=== PATIENT | female | born 1990 | race Caucasian/White ===

== ENCOUNTER 2018-03-28 13:47 | Emergency (ER) | payer BC, MEDICAID ==
[2018-03-28] MEDS ORDERED: LORazepam 2 MG/ML SDV IVPUSH ONE ×2 (14:00→14:54)
[2018-03-28] MEDS ORDERED: Sodium Chloride 0.9% 10 ML Syringe FLUSH PRN (14:00)
--- NOTE | 2018-03-28 14:03 | EDM.PDOC ---
ED HPI GENERAL MEDICAL PROBLEM - General Chief Complaint: Syncope Stated Complaint: SYNCOPE Time Seen by Provider: 03/28/18 14:02 Source of Information: Reports: Patient History Limitations: Reports: Other (anxious) - History of Present Illness INITIAL COMMENTS - FREE TEXT/NARRATIVE: 27-year-old female presents for evaluation and treatment following a near syncopal episode. Reports she was lightheaded and dizzy but did not actually pass out. She is reporting chest pain and shortness of breath related to anxiety. She is incredibly anxious upon arrival to the ED and cannot answer questions completely. She is tachypneic and crying. Plan will be to get her some IV Ativan and check her sugar as she is on metformin. Will then reassess and interview her once she has calmed down. - Related Data Allergies Allergy/AdvReac Type Severity Reaction Status Date / Time morphine AdvReac Mild Burning Verified 03/28/18 13:56 Home Meds: Home Meds DULoxetine [Cymbalta] 60 mg PO DAILY 03/28/18 [History] LORazepam [Ativan] 1 mg PO Q6HR PRN #8 tablet 03/28/18 [Rx] RX: Doxycycline Hyclate 50 mg PO DAILY 03/28/18 [History] RX: Omeprazole 40 mg PO DAILY 03/28/18 [History] RX: Phentermine HCl 37.5 mg PO DAILY 03/28/18 [History] Spironolactone [Aldactone] 100 mg PO DAILY 03/28/18 [History] buPROPion HCl [Wellbutrin Xl] 150 mg PO DAILY 03/28/18 [History] buPROPion [buPROPion XL] 300 mg PO BEDTIME 03/28/18 [History] metFORMIN [Glucophage XR] 500 mg PO DAILY 03/28/18 [History] Past Medical History Psychiatric History: Reports: Anxiety, Depression Social & Family History - Tobacco Use Smoking Status *Q: Never Smoker - Caffeine Use Caffeine Use: Reports: None - Recreational Drug Use Recreational Drug Use: No ED ROS GENERAL - Review of Systems Review Of Systems: See Below Respiratory: Reports: Shortness of Breath (due to anxiety) Cardiovascular: Reports: Chest Pain (due to anxiety ), Lightheadedness GI/Abdominal: Denies: Abdominal Pain, Nausea, Vomiting Neurological: Reports: Dizziness. Denies: Syncope Psychiatric: Reports: Anxiety - Physical Exam Exam: See Below Exam Limited By: No Limitations General Appearance: Alert, WD/WN, Anxious, Obese Respiratory/Chest: No Respiratory Distress, Lungs Clear Cardiovascular: Normal Peripheral Pulses, Regular Rate, Rhythm GI/Abdominal: Soft, Non-Tender Neuro Exam (Abbreviated): Alert, Oriented, Normal Cognition Extremities: Normal Inspection Psychiatric: Anxious, Tearful, Other (suicidal thoughts, no suicidal plan or homicidal thoughts or plan) Skin Exam: Warm, Dry, Normal Color Course - Vital Signs Last Recorded V/S: Last Vital Signs Temp 98 F 03/28/18 13:51 Pulse Resp 28 H 03/28/18 13:51 BP 136/105 H 03/28/18 13:51 Pulse Ox 100 03/28/18 13:51 Orthostatic Blood Pressure [ 121/98 Standing] Orthostatic Blood Pressure [ 128/95 Sitting] Orthostatic Blood Pressure [ 115/86 Supine] - Orders/Labs/Meds Orders: Active Orders 24 hr Category Date Time Status Blood Glucose Check, Bedside [RC] ONETIME Care 03/28/18 14:00 Active Cardiac Monitoring [RC] . DIRECTED Care 03/28/18 14:00 Active Orthostatic Vital Signs [RC] ASDIRECTED Care 03/28/18 14:54 Active Peripheral IV Care [RC] . DIRECTED Care 03/28/18 14:00 Active DRUG SCREEN, URINE [URCHEM] Stat Lab 03/28/18 15:35 Ordered UA W/MICROSCOPIC [URIN] Stat Lab 03/28/18 15:35 Ordered Peripheral IV Insertion Adult [OM.PC] Routine Oth 03/28/18 14:00 Ordered Labs: Laboratory Tests 03/28/18 03/28/18 03/28/18 Range/Units 14:00 14:00 14:00 WBC 10.99 H (3.98-10.04) K/mm3 RBC 4.65 (3.98-5.22) M/mm3 Hgb 14.3 (11.2-15.7) gm/L Hct 43.2 (34.1-44.9) % MCV 92.9 (79.4-94.8) fl MCH 30.8 (25.6-32.2) pg MCHC 33.1 (32.2-35.5) g/dl RDW Std Deviation 42.1 (36.4-46.3) fL Plt Count 409 H (182-369) K/mm3 MPV 9.7 (9.4-12.3) fl Neut % (Auto) 69.9 (34.0-71.1) % Lymph % (Auto) 24.3 (19.3-51.7) % Haines % (Auto) 4.5 L (4.7-12.5) % Eos % (Auto) 0.6 L (0.7-5.8) Baso % (Auto) 0.5 (0.1-1.2) % Neut # (Auto) 7.69 H (1.56-6.13) K/mm3 Lymph # (Auto) 2.67 (1.18-3.74) K/mm3 Haines # (Auto) 0.49 H (0.24-0.36) K/mm3 Eos # (Auto) 0.07 (0.04-0.36) K/mm3 Baso # (Auto) 0.05 (0.01-0.08) K/mm3 Sodium 140 (136-145) mEq/L Potassium 4.2 (3.5-5.1) mEq/L Chloride 106 (98-107) mEq/L Carbon Dioxide 22 (21-32) mEq/L Anion Gap 16.2 H (5-15) BUN 7 (7-18) mg/dL Creatinine 1.1 H (0.55-1.02) mg/dL Est Cr Clr Drug Dosing 76.81 mL/min Estimated GFR (MDRD) 59 (>60) mL/min BUN/Creatinine Ratio 6.4 L (14-18) Glucose 109 H (74-106) mg/dL POC Glucose (70-105) mg/dL Calcium 9.3 (8.5-10.1) mg/dL Total Bilirubin 0.2 (0.2-1.0) mg/dL AST 22 (15-37) U/L ALT 33 (14-59) U/L Alkaline Phosphatase 79 (46-116) U/L Total Protein 7.7 (6.4-8.2) g/dl Albumin 3.7 (3.4-5.0) g/dl Globulin 4.0 gm/dL Albumin/Globulin Ratio 0.9 L (1-2) Urine Color (Yellow) Urine Appearance (Clear) Urine pH (5.0-8.0) Ur Specific [place] (1.005-1.030) Urine Protein (Negative) Urine Glucose (UA) (Negative) Urine Ketones (Negative) Urine Occult Blood (Negative) Urine Nitrite (Negative) Urine Bilirubin (Negative) Urine Urobilinogen (0.2-1.0) Ur Leukocyte Esterase (Negative) Urine RBC (0-5) /hpf Urine WBC (0-5) /hpf Ur Epithelial Cells (0-5) /hpf Urine Bacteria (FEW) /hpf Urine Mucus (FEW) /hpf Urine Opiates Screen (NEGATIVE) Ur Buprenorphine Scrn (NEGATIVE) Ur Oxycodone Screen (NEGATIVE) Urine Methadone Screen (NEGATIVE) Ur Propoxyphene Screen (NEGATIVE) Ur Barbiturates Screen (NEGATIVE) Ur Tricyclics Screen (NEGATIVE) Ur Phencyclidine Scrn (NEGATIVE) Ur Amphetamine Screen (NEGATIVE) U Methamphetamines Scrn (NEGATIVE) U Benzodiazepines Scrn (NEGATIVE) U Cocaine Metab Screen (NEGATIVE) U Marijuana (THC) Screen (NEGATIVE) Ethyl Alcohol 0.00 (0.00) gm% 03/28/18 03/28/18 03/28/18 Range/Units 14:08 15:35 15:35 WBC (3.98-10.04) K/mm3 RBC (3.98-5.22) M/mm3 Hgb (11.2-15.7) gm/L Hct (34.1-44.9) % MCV (79.4-94.8) fl MCH (25.6-32.2) pg MCHC (32.2-35.5) g/dl RDW Std Deviation (36.4-46.3) fL Plt Count (182-369) K/mm3 MPV (9.4-12.3) fl Neut % (Auto) (34.0-71.1) % Lymph % (Auto) (19.3-51.7) % Haines % (Auto) (4.7-12.5) % Eos % (Auto) (0.7-5.8) Baso % (Auto) (0.1-1.2) % Neut # (Auto) (1.56-6.13) K/mm3 Lymph # (Auto) (1.18-3.74) K/mm3 Haines # (Auto) (0.24-0.36) K/mm3 Eos # (Auto) (0.04-0.36) K/mm3 Baso # (Auto) (0.01-0.08) K/mm3 Sodium (136-145) mEq/L Potassium (3.5-5.1) mEq/L Chloride (98-107) mEq/L Carbon Dioxide (21-32) mEq/L Anion Gap (5-15) BUN (7-18) mg/dL Creatinine (0.55-1.02) mg/dL Est Cr Clr Drug Dosing mL/min Estimated GFR (MDRD) (>60) mL/min BUN/Creatinine Ratio (14-18) Glucose (74-106) mg/dL POC Glucose 93 (70-105) mg/dL Calcium (8.5-10.1) mg/dL Total Bilirubin (0.2-1.0) mg/dL AST (15-37) U/L ALT (14-59) U/L Alkaline Phosphatase (46-116) U/L Total Protein (6.4-8.2) g/dl Albumin (3.4-5.0) g/dl Globulin gm/dL Albumin/Globulin Ratio (1-2) Urine Color Yellow (Yellow) Urine Appearance Clear (Clear) Urine pH 7.0 (5.0-8.0) Ur Specific [place] 1.015 (1.005-1.030) Urine Protein Negative (Negative) Urine Glucose (UA) Negative (Negative) Urine Ketones Negative (Negative) Urine Occult Blood Negative (Negative) Urine Nitrite Negative (Negative) Urine Bilirubin Negative (Negative) Urine Urobilinogen 0.2 (0.2-1.0) Ur Leukocyte Esterase Negative (Negative) Urine RBC Not seen (0-5) /hpf Urine WBC 0-5 (0-5) /hpf Ur Epithelial Cells 0-5 (0-5) /hpf Urine Bacteria Not seen (FEW) /hpf Urine Mucus Not seen (FEW) /hpf Urine Opiates Screen Negative (NEGATIVE) Ur Buprenorphine Scrn Negative (NEGATIVE) Ur Oxycodone Screen Negative (NEGATIVE) Urine Methadone Screen Negative (NEGATIVE) Ur Propoxyphene Screen Negative (NEGATIVE) Ur Barbiturates Screen Negative (NEGATIVE) Ur Tricyclics Screen Negative (NEGATIVE) Ur Phencyclidine Scrn Negative (NEGATIVE) Ur Amphetamine Screen Presumptive positive H (NEGATIVE) U Methamphetamines Scrn Negative (NEGATIVE) U Benzodiazepines Scrn Negative (NEGATIVE) U Cocaine Metab Screen Negative (NEGATIVE) U Marijuana (THC) Screen Negative (NEGATIVE) Ethyl Alcohol (0.00) gm% Meds: Medications Discontinued Medications Generic Name Dose Route Start Last Admin Trade Name Frenader PRN Reason Stop Dose Admin Sodium Chloride 1,000 mls @ 999 mls/hr 03/28/18 15:14 03/28/18 15:37 Normal Saline IV 03/28/18 16:14 999 mls/hr ONETIME ONE Administration Lorazepam 1 mg 03/28/18 14:00 03/28/18 14:04 Ativan IVPUSH 03/28/18 14:01 1 mg ONETIME ONE Administration Lorazepam 0.5 mg 03/28/18 14:54 03/28/18 15:08 Ativan IVPUSH 03/28/18 14:55 0.5 mg ONETIME ONE Administration Sodium Chloride 10 ml 03/28/18 14:00 03/28/18 14:04 Saline Flush FLUSH 10 ml ASDIRECTED PRN Administration Keep Vein Open - Re-Assessments/Exams Free Text/Narrative Re-Assessment/Exam: 03/28/18 15:16 Was able to go in an interview the patient now that she has calmed down. She still tearful and anxious I'll order her an additional 0.5 mg IV Ativan. Patient talks about how she had missed her Cymbalta for the last 2 days. She was feeling "brain zaps" and tired earlier. patient states the side effect of when she withdraws from Cymbalta. She realizes that she has not taken her Cymbalta, by accident, last 2 days. She became quite anxious about this and took it around noon. She states that she felt lightheaded and dizzy. She reports that she did not pass out. She felt chest pain and shortness of breath earlier which this is now resolved. She states that she's had panic attacks in the past and this felt very similar other than feeling so ill. Will check orthostatics. Awaiting labs. This is likely a panic attack. Will check basic labs. 03/28/18 17:09 Patient is feeling greatly in improved at this time. She feels fatigued. She has called and made appointment with a psychiatrist in [place], Dr. Bean, She denies any suicidal plan but states she has daily thoughts of suicide. This sounds like this is her baseline. She has seen multiple psychiatrists and psychologists in the past but has had difficulty establishing one she feels comfortable with. I will provide her with resources should this not work out with Dr. Bean. Discharge instructions as documented. Departure - Departure Time of Disposition: 17:10 Disposition: Home, Self-Care 01 Condition: Fair Clinical Impression: Panic attack - Discharge Information *PRESCRIPTION DRUG MONITORING PROGRAM REVIEWED*: No *COPY OF PRESCRIPTION DRUG MONITORING REPORT IN PATIENT MOLLY: No Prescriptions: LORazepam [Ativan] 1 mg PO Q6HR PRN #8 tablet PRN Reason: Anxiety Instructions: Panic Attack, [id number] Referrals: Sharon Obrien NP [Primary Care Provider] - Forms: ED Department Discharge Additional Instructions: Follow up with Dr. Bean as planned. Information has been provided for you should this not without with Dr Bean. Ativan 1 tab every 6 hours as needed for anxiety. This medication may make you drowsy. Do not drive or operate machinery within 10 hours of taking Ativan. Please return to the ER if your symptoms change or worsen. - My Orders Last 24 Hours: My Active Orders 03/28/18 14:00 Blood Glucose Check, Bedside [RC] ONETIME Cardiac Monitoring [RC] . DIRECTED Peripheral IV Care [RC] . DIRECTED Peripheral IV Insertion Adult [OM.PC] Routine 03/28/18 14:54 Orthostatic Vital Signs [RC] ASDIRECTED 03/28/18 15:35 DRUG SCREEN, URINE [URCHEM] Stat UA W/MICROSCOPIC [URIN] Stat - Assessment/Plan Last 24 Hours: My Active Orders 03/28/18 14:00 Blood Glucose Check, Bedside [RC] ONETIME Cardiac Monitoring [RC] . DIRECTED Peripheral IV Care [RC] . DIRECTED Peripheral IV Insertion Adult [OM.PC] Routine 03/28/18 14:54 Orthostatic Vital Signs [RC] ASDIRECTED 03/28/18 15:35 DRUG SCREEN, URINE [URCHEM] Stat UA W/MICROSCOPIC [URIN] Stat
[2018-03-28] MEDS ORDERED: Sodium Chloride 0.9% 1,000 ML IV ONE (15:14)
== END 2018-03-28 17:25 | disposition home or self-care (01) ==
LOC: JD.ED 13:47
DX: F41.0 Panic disorder [episodic paroxysmal anxiety] (principal); F32.9 Major depressive disorder, single episode, unspecified; Z79.899 Other long term (current) drug therapy; Z88.5 Allergy status to narcotic agent
CPT/HCPCS: 36415; 80053; 80306; 81001; 82962; 85025; 96361; 96374; 96376; 99284; G0480; J2060; J7040; J7050

== ENCOUNTER 2018-10-17 11:45 | Emergency (ER) | payer OTHER ==
--- NOTE | 2018-10-17 12:55 | EDM.PDOC ---
ED HPI GENERAL MEDICAL PROBLEM - General Chief Complaint: Syncope Stated Complaint: PASTED OUT Time Seen by Provider: 10/17/18 12:20 Source of Information: Reports: Patient History Limitations: Reports: No Limitations - History of Present Illness INITIAL COMMENTS - FREE TEXT/NARRATIVE: Patient is a 27-year-old female presents ED with 2 episodes of syncopal episodes over the past week. States this morning at approximately 8:00 with awakening she remembers sitting up in bed and then awoke 1.5 hours later laying on the floor. She denies any head pain, headache, vision changes, weakness discrepancies to the upper and lower extremities, neurological changes, difficultly in walking, chest pain, shortness of breath, fever, midline cervical neck pain, midline back pain, dysuria, diarrhea, bloody stool, hematuria, and/or any additional complaints. She states this is a chronic issue for her. She is chronically dizzy with body position changes. She does push the fluids. She has a long history of anxiety and depression and states with any type of medication changes for these conditions she experiences worsening dizziness. Recently was on Cymbalta 90 mg every day. She had been in contact with her primary care provider with the first syncopal episode and was instructed to decrease to 60 mg every day. Symptoms have somewhat improved but still persists. She describes the dizziness as if she is in a boat. There is no sensation of the room spinning. No worsening with turning head from left to right. She denies any chest pain or palpitations with onset. She denies being . There has been no alcohol use. She does not smoke. She does not use drugs. Her last menstrual cycle was 04 October. Her PCP is [facility]. Patient does carry a history of gastroparesis and states she does have some slight tenderness to her abdomen described as mild in nature. Unchanged and does not require any further evaluation. This started approximately 8-9 years ago after gallbladder was removed. - Related Data Allergies Allergy/AdvReac Type Severity Reaction Status Date / Time morphine AdvReac Mild Burning Verified 10/17/18 11:59 Home Meds: Home Meds DULoxetine [Cymbalta] 60 mg PO DAILY 03/28/18 [History] buPROPion HCl [Wellbutrin Xl] 150 mg PO DAILY 03/28/18 [History] buPROPion [buPROPion XL] 300 mg PO BEDTIME 03/28/18 [History] Albuterol Sulfate [Proair Hfa] 2 puff INH Q4H PRN 07/06/18 [History] Ascorbate Calcium [Vitamin C] 500 mg PO DAILY 07/06/18 [History] Calcium Carbonate [Tums Extra Strength] 1 - 2 tab PO BEDTIME PRN 07/06/18 [ History] Ondansetron HCl [Ondansetron] 4 mg PO Q4H PRN 07/06/18 [History] hydrOXYzine pamoate [Vistaril] 25 mg PO QID PRN 07/06/18 [History] Pantoprazole [ProTONIX] 40 mg PO DAILY 10/17/18 [History] Past Medical History HEENT History: Reports: Impaired Vision Cardiovascular History: Reports: Syncope, Other (See Below) Other Cardiovascular History: atypical chest pain Respiratory History: Reports: Asthma Gastrointestinal History: Reports: Other (See Below) Other Gastrointestinal History: gastropareis, esophagitis, gastritis, duodenitis Genitourinary History: Reports: None PAN WASHER History: Reports: Other (See Below) Other PAN WASHER History: breast lumpectomy Musculoskeletal History: Reports: None Neurological History: Reports: None Psychiatric History: Reports: Anxiety, Depression Endocrine/Metabolic History: Reports: Obesity/BMI 30+ Hematologic History: Reports: None Immunologic History: Reports: None Oncologic (Cancer) History: Reports: None Dermatologic History: Reports: Other (See Below) Other Dermatologic History: hirtuism - Past Surgical History Head Surgeries/Procedures: Reports: None HEENT Surgical History: Reports: Oral Surgery Cardiovascular Surgical History: Reports: None Respiratory Surgical History: Reports: None GI Surgical History: Reports: Cholecystectomy, Colonoscopy, EGD Female Surgical History: Reports: None Endocrine Surgical History: Reports: None Neurological Surgical History: Reports: None Musculoskeletal Surgical History: Reports: None Oncologic Surgical History: Reports: None Dermatological Surgical History: Reports: None Social & Family History - Tobacco Use Smoking Status *Q: Never Smoker - Caffeine Use Caffeine Use: Reports: Coffee, Energy Drinks - Recreational Drug Use Recreational Drug Use: No ED ROS GENERAL - Review of Systems Review Of Systems: See Below Constitutional: Denies: Fever, Chills, Malaise, Weakness, Fatigue, Decreased Appetite HEENT: Reports: No Symptoms Respiratory: Reports: No Symptoms Cardiovascular: Reports: Syncope. Denies: Chest Pain, Dyspnea on Exertion, Lightheadedness, Palpitations GI/Abdominal: Denies: Abdominal Pain, Black Stool, Bloody Stool, Constipation, Diarrhea, Decreased Appetite, Distension, Flatus, Hematemesis, Melena, Nausea, Vomiting : Reports: No Symptoms Musculoskeletal: Reports: No Symptoms Skin: Reports: No Symptoms Neurological: Reports: Dizziness (chronic), Syncope (x 1 today). Denies: Confusion, Headache, Numbness, Pre-Existing Deficit, Seizure, Tingling, Trouble Speaking, Difficulty Walking, Weakness, Change in Speech, Gait Disturbance Psychiatric: Reports: No Symptoms - Physical Exam Exam: See Below Exam Limited By: Other General Appearance: Alert, WD/WN, No Apparent Distress Eye Exam: Bilateral Eye: EOMI, Normal Inspection, Nystagmus (none stated), PERRL , Vision Changes (none noted) Ears: Hearing Grossly Normal Nose: Normal Inspection Throat/Mouth: Normal Voice, No Airway Compromise Head Exam: Atraumatic, Normocephalic Neck: Normal Inspection, Supple, Non-Tender, Full Range of Motion Respiratory/Chest: No Respiratory Distress, Lungs Clear, Normal Breath Sounds, No Accessory Muscle Use, Chest Non-Tender Cardiovascular: Normal Peripheral Pulses, Regular Rate, Rhythm, No Murmur GI/Abdominal: Normal Bowel Sounds, Soft, Non-Tender, No Organomegaly, No Distention Neuro Exam (Abbreviated): Alert, Oriented, CN II-XII Intact, Normal Cognition, No Motor/Sensory Deficits Course - Vital Signs Last Recorded V/S: Last Vital Signs Temp 98.1 F 10/17/18 16:05 Pulse 80 10/17/18 16:05 Resp 20 10/17/18 16:05 BP 138/94 H 10/17/18 16:05 Pulse Ox 99 10/17/18 16:05 - Orders/Labs/Meds Orders: Active Orders 24 hr Category Date Time Status EKG 12 Lead [EKG Documentation Completion] [RC] STAT Care 10/17/18 14:19 Active Holter Monitor 48 Hours [RC] .PRN Care 10/17/18 14:20 Active UA W/MICROSCOPIC [URIN] Stat Lab 10/17/18 15:50 Ordered Labs: Laboratory Tests 10/17/18 10/17/18 10/17/18 Range/Units 13:15 13:15 15:50 WBC 8.28 (3.98-10.04) K/mm3 RBC 4.76 (3.98-5.22) M/mm3 Hgb 14.2 (11.2-15.7) gm/L Hct 43.3 (34.1-44.9) % MCV 91.0 (79.4-94.8) fl MCH 29.8 (25.6-32.2) pg MCHC 32.8 (32.2-35.5) g/dl RDW Std Deviation 42.1 (36.4-46.3) fL Plt Count 356 (182-369) K/mm3 MPV 9.0 L (9.4-12.3) fl Neutrophils % (Manual) 79 H (40-60) % Band Neutrophils % 0 (0-10) % Lymphocytes % (Manual) 18 L (20-40) % Atypical Lymphs % 0 % Monocytes % (Manual) 2 (2-10) % Eosinophils % (Manual) 1 (0.7-5.8) % Basophils % (Manual) 0 L (0.1-1.2) Platelet Estimate Adequate Plt Morphology Comment Normal RBC Morph Comment Normal Sodium 139 (136-145) mEq/L Potassium 3.9 (3.5-5.1) mEq/L Chloride 104 (98-107) mEq/L Carbon Dioxide 28 (21-32) mEq/L Anion Gap 10.9 (5-15) BUN 13 (7-18) mg/dL Creatinine 0.9 (0.55-1.02) mg/dL Est Cr Clr Drug Dosing 93.88 mL/min Estimated GFR (MDRD) > 60 (>60) mL/min BUN/Creatinine Ratio 14.4 (14-18) Glucose 83 (74-106) mg/dL Calcium 9.3 (8.5-10.1) mg/dL Total Bilirubin 0.6 (0.2-1.0) mg/dL AST 20 (15-37) U/L ALT 34 (14-59) U/L Alkaline Phosphatase 78 (46-116) U/L C-Reactive Protein 1.0 (<1.0) mg/dL Total Protein 7.6 (6.4-8.2) g/dl Albumin 3.4 (3.4-5.0) g/dl Globulin 4.2 gm/dL Albumin/Globulin Ratio 0.8 L (1-2) Lipase 153 (73-393) U/L Urine HCG, Qual Negative (NEGATIVE) - Re-Assessments/Exams Free Text/Narrative Re-Assessment/Exam: Orthostatic vital signs were obtained. Laying blood pressure 120/86, heart rate 70, SPO2 100%, respiratory rate 14. Sitting blood pressure 123/91, heart rate 91. Standing blood pressure 123/102 and heart rate 91. No IV will be established. Exam was essentially benign. With standing patient was not unsteady at all. I have elected to obtain basic labs including CBC, chem 14, UA, and hCG. EKG will be obtained as well. EKG indicated a sinus rhythm at a rate of 77 with AR interval 151, QTC prolonged 46. No acute ST changes noted. Holter monitor has been ordered. Patient's dizziness worsened with body position changes. She's had 2 syncopal episodes with body position changes. States this has been a chronic issue since she was a teenager. No clear diagnosis. Symptoms worsen with antidepressant and antianxiety medications changes. Recently was on a high dose of Cymbalta 90 mg every day. She had spoken with her primary care provider and this was decreased to 60 mg every day. Symptoms have improved. I suspect this all related to the medications she is currently on. I discussed this with the patient. She is unable to provide a urine sample. She has a appointment scheduled with PCP in the next week. I have instructed the patient to follow-up with a psychologist with her long history of anxiety and depression for further management. Instructed her to also speak with a psychiatrist which I believe would be of great benefit to her. She will follow up with PCP for results of the Holter monitor. I have also asked the patient to take her time with body position changes if she becomes dizzy. If so to return back to the previous body position to allow symptoms to resolve. She had no further questions or concerns and agreed with plan. Departure - Departure Time of Disposition: 15:31 Disposition: Home, Self-Care 01 Condition: Good Clinical Impression: Postural hypotension, Dizziness Syncopal episodes Qualifiers: Syncope type: unspecified Qualified Code(s): R55 - Syncope and collapse - Discharge Information Instructions: Dizziness, [id number], Cardiac Event Monitoring, Hypotension, Syncope, [id number] Referrals: Sharon Lau NP [Primary Care Provider] - Forms: ED Department Discharge Additional Instructions: Please follow up with primary care provider as scheduled within the next week for results of Holter monitor. Event monitor may be required if no episodes occurred. I do believe modifications to current psych medications are required. All the medications currently on can contribute to dizziness. I also believe dizziness is related to body position changes. Thus with with body position changes please take your time if dizziness occurs stop and return back to previous body position to allow symptoms to resolve. Continue to push the fluids. Eat a balanced meal. Call and make an appointment with a psychologist and psychiatrist of your choice for further management of psych needs. Please return back to the ED if you develop any new or worsening symptoms. - My Orders Last 24 Hours: My Active Orders 10/17/18 14:19 EKG 12 Lead [EKG Documentation Completion] [RC] STAT 10/17/18 14:20 Holter Monitor 48 Hours [RC] .PRN 10/17/18 15:50 UA W/MICROSCOPIC [URIN] Stat - Assessment/Plan Last 24 Hours: My Active Orders 10/17/18 14:19 EKG 12 Lead [EKG Documentation Completion] [RC] STAT 10/17/18 14:20 Holter Monitor 48 Hours [RC] .PRN 10/17/18 15:50 UA W/MICROSCOPIC [URIN] Stat
== END 2018-10-17 16:12 | disposition home or self-care (01) ==
LOC: SUPCPDRO 11:45 → JD.ED 11:45
DX: I95.1 Orthostatic hypotension (principal); F41.9 Anxiety disorder, unspecified; F32.9 Major depressive disorder, single episode, unspecified; E66.9 Obesity, unspecified; Z79.899 Other long term (current) drug therapy; Z90.49 Acquired absence of other specified parts of digestive tract; Z88.5 Allergy status to narcotic agent
CPT/HCPCS: 36415; 80053; 81001; 81025; 83690; 85007; 85027; 86140; 93005; 93010; 93225; 93226; 99284; 99284-25

== ENCOUNTER 2021-10-20 15:57 | Emergency (ER) | payer BC ==
[2021-10-20] MEDS ORDERED: Sodium Chloride 0.9% 10 ML Syringe FLUSH PRN (16:25)
[2021-10-20] MEDS ORDERED: Ondansetron 4 MG/2 ML SDV IVPUSH ONE (16:25)
[2021-10-20] MEDS ORDERED: HYDROmorphone 1 MG/ML Syringe IVPUSH STA (16:25)
[2021-10-20] MEDS ORDERED: Sodium Chloride 0.9% 1,000 ML IV SCH (16:30)
[2021-10-20] MEDS ORDERED: Iopamidol 612 MG/ML 100 ML Bottle IVPUSH ONE (17:10)
[2021-10-20] MEDS ORDERED: Sodium Chloride 0.9% 10 ML Syringe FLUSH ONE (17:10)
[2021-10-20] MEDS ORDERED: Sodium Chloride 0.9% 100 ML IV SCH (17:15)
[2021-10-20] MEDS ORDERED: Iopamidol 612 MG/ML 50 ML SDV IVPUSH ONE (17:18)
[2021-10-20] MEDS ORDERED: HYDROmorphone 0.5 MG/0.5 ML Syringe IVPUSH ONE (19:36)
== END 2021-10-20 20:43 | disposition home or self-care (01) ==
LOC: JD.ED 15:57
DX: R10.32 Left lower quadrant pain (principal); E66.9 Obesity, unspecified; Z68.43 Body mass index [BMI] 50.0-59.9, adult; Z88.5 Allergy status to narcotic agent
CPT/HCPCS: 36415; 74177; 76830; 80053; 81001; 81025; 83690; 85025; 86140; 96374; 96375; 96376; 99284; J1170; J2405; J7030; Q9967; 99285

== ENCOUNTER 2022-12-31 00:02 | Emergency (ER) | payer BC ==
[2022-12-31] MEDS ORDERED: Ondansetron 4 MG/2 ML SDV IVPUSH ONE (00:40)
[2022-12-31] MEDS ORDERED: Sodium Chloride 0.9% 1,000 ML IV SCH (00:45)
[2022-12-31] MEDS ORDERED: Pantoprazole 40 MG Vial IVPUSH ONE (00:48)
[2022-12-31] MEDS ORDERED: Iopamidol 612 MG/ML 100 ML Bottle IVPUSH ONE (00:52)
[2022-12-31] MEDS ORDERED: Sodium Chloride 0.9% 10 ML Syringe FLUSH ONE (00:52)
[2022-12-31] MEDS ORDERED: Iopamidol 612 MG/ML 50 ML SDV IVPUSH ONE (00:52)
[2022-12-31] MEDS ORDERED: Pantoprazole 80 MG in Sodium Chloride 0.9% 100 ML IV SCH (01:00)
[2022-12-31 01:17] LABS: BASOPHILS ABSOLUTE AUTO 0.05 K/mm3 (0.01-0.08); BASOPHILS PERCENT AUTO 0.7 % (0.1-1.2); EOSINOPHILS ABSOLUTE AUTO 0.05 K/mm3 (0.04-0.36); EOSINOPHILS PERCENT AUTO 0.7 (0.7-5.8); HEMATOCRIT 42.7 % (34.1-44.9); HEMOGLOBIN 14.3 gm/dl (11.2-15.7); IMMATURE GRAN ABSOLUTE AUTO 0.01 K/mm3 (0.00-0.10); IMMATURE GRAN PERCENT AUTO 0.1 % (<=1.0); LYMPHOCYTES ABSOLUTE AUTO 3.03 K/mm3 (1.18-3.74); LYMPHOCYTES PERCENT AUTO 42.6 % (19.3-51.7); MEAN CORPUSCULAR HEMOGLOBIN 30.7 pg (25.6-32.2); MEAN CORPUSCULAR HGB CONC 33.5 g/dl (32.2-35.5); MEAN CORPUSCULAR VOLUME 91.6 fl (79.4-94.8); MEAN PLATELET VOLUME 9.6 fl (9.4-12.3); MONOCYTES ABSOLUTE AUTO 0.41 K/mm3 (0.24-0.36); MONOCYTES PERCENT AUTO 5.8 % (4.7-12.5); NEUTROPHILS ABSOLUTE AUTO 3.56 K/mm3 (1.56-6.13); NEUTROPHILS PERCENT AUTO 50.1 % (34.0-71.1); PLATELET COUNT,PLT 329 K/mm3 (182-369); RED BLOOD CELL COUNT 4.66 M/mm3 (3.98-5.22); WHITE BLOOD CELL COUNT,WBC 7.11 K/mm3 (3.98-10.04)
[2022-12-31 01:47] LABS: A/G RATIO 0.9 (1-2); ALANINE AMINOTRANSFERASE,ALT 46 U/L (14-59); ALBUMIN 3.7 g/dl (3.4-5.0); ALKALINE PHOSPHATASE 100 U/L (46-116); ANION GAP 14.1 (5-15); ASPARTATE AMNIOTRANSFERASE,AST 29 U/L (15-37); BILIRUBIN TOTAL 0.2 mg/dL (0.2-1.0); BLOOD UREA NITROGEN,BUN 9 mg/dL (7-18); CARBON DIOXIDE,CO2 24 mEq/L (21-32); CHLORIDE,CL 106 mEq/L (98-107); ESTIMATED GFR 76 mL/min (>60); GLUCOSE RANDOM 91 mg/dL (70-99); LIPASE 104 U/L (73-393); POTASSIUM,K 4.1 mEq/L (3.5-5.1); PROTEIN TOTAL,TP 7.8 g/dl (6.4-8.2); SODIUM,NA 140 mEq/L (136-145)
== END 2022-12-31 03:45 ==
LOC: JD.ED 00:02
DX: K92.2 Gastrointestinal hemorrhage, unspecified (principal); J45.909 Unspecified asthma, uncomplicated; E66.9 Obesity, unspecified; Z68.30 Body mass index [BMI] 30.0-30.9, adult; Z88.5 Allergy status to narcotic agent
CPT/HCPCS: 36415; 74177; 80053; 83690; 84703; 85025; 86850; 86900; 86901; 96365; 96366; 96375; 96376; 99285; C9113; J2405; J3490; J7030; Q9967

== ENCOUNTER 2023-05-26 19:18 | Emergency (ER) | payer BC ==
[2023-05-26 20:20] LABS: APPEARANCE,URINE CLEAR (Clear); BILIRUBIN,URINE NEGATIVE (Negative); COLOR,URINE YELLOW (Yellow); GLUCOSE,URINE NEGATIVE (Negative); KETONES,URINE NEGATIVE (Negative); LEUKOCYTE ESTERASE,URINE NEGATIVE (Negative); NITRITE,URINE NEGATIVE (Negative); OCCULT BLOOD,URINE TRACE-INTACT (Negative); PROTEIN,URINE NEGATIVE (Negative); UROBILINOGEN,URINE 0.2 (0.2-1.0)
[2023-05-26 20:39] LABS: BACTERIA,URINE FEW /hpf (FEW); EPITHELIAL CELLS,URINE 0-5 /hpf (0-5); MUCUS,URINE RARE /hpf (FEW); RBC,URINE 0-5 /hpf (0-5); WBC,URINE 0-5 /hpf (0-5)
[2023-05-26] MEDS ORDERED: Iopamidol 755 Mg/ML 100 ML Bottle IVPUSH ONE (22:15)
[2023-05-26] MEDS ORDERED: Sodium Chloride 0.9% 100 ML IV SCH (22:15)
[2023-05-26 22:43] LABS: BASOPHILS ABSOLUTE AUTO 0.1 K/mm3 (0.0-0.2); BASOPHILS PERCENT AUTO 0.8 % (0.0-1.0); EOSINOPHILS ABSOLUTE AUTO 0.1 K/mm3 (0.0-0.4); EOSINOPHILS PERCENT AUTO 0.7 % (0.0-6.0); HEMATOCRIT 39.8 % (37.0-47.0); HEMOGLOBIN 13.2 gm/dl (12.0-16.0); IMMATURE GRAN ABSOLUTE AUTO 0.02 K/mm3 (0.00-0.05); IMMATURE GRAN PERCENT AUTO 0.2 % (0.0-0.4); LYMPHOCYTES PERCENT AUTO 41.6 % (24.0-44.0); MEAN CORPUSCULAR HEMOGLOBIN 30.1 pg (28.0-32.0); MEAN CORPUSCULAR HGB CONC 33.2 g/dl (32.0-36.0); MEAN CORPUSCULAR VOLUME 90.9 fl (83.0-99.0); MEAN PLATELET VOLUME 9.7 fl (9.4-12.3); MONOCYTES ABSOLUTE AUTO 0.6 K/mm3 (0.0-0.8); MONOCYTES PERCENT AUTO 5.8 % (0.0-8.0); NEUTROPHILS ABSOLUTE AUTO 4.9 K/mm3 (1.8-7.7); NEUTROPHILS PERCENT AUTO 50.9 % (41.0-71.0); PLATELET COUNT,PLT 337 K/mm3 (150-400); RED BLOOD CELL COUNT 4.38 M/mm3 (4.10-5.30); WHITE BLOOD CELL COUNT,WBC 9.53 K/mm3 (3.9-11.3)
[2023-05-26 23:04] LABS: ALBUMIN 3.8 g/dl (3.4-5.0); ANION GAP 12.8 (5-15); BILIRUBIN TOTAL 0.3 mg/dL (0.2-1.0); CALCIUM 9.3 mg/dL (8.5-10.1); EST CRCL DRUG DOSING (CG) 83.62 mL/min; POTASSIUM,K 3.8 mEq/L (3.5-5.1); PROTEIN TOTAL,TP 7.7 g/dl (6.4-8.2)
== END 2023-05-26 23:42 | disposition home or self-care (01) ==
LOC: JD.ED 19:18
DX: R07.89 Other chest pain (principal); H53.8 Other visual disturbances; E66.9 Obesity, unspecified; Z88.5 Allergy status to narcotic agent; Z68.41 Body mass index [BMI] 40.0-44.9, adult
CPT/HCPCS: 36415; 70496; 70498; 71046; 80053; 81001; 81025; 85025; 93005; 99285; J3490; Q9967; 93010; 99284

== ENCOUNTER 2024-02-08 07:58 | Day surgery (SDC) | payer BC ==
[~2024-02-08 07:58] MED LIST: Dexamethasone 4 MG/ML 5 ML MDV ONE; Ketorolac 30 MG/ML SDV ONE; Midazolam 1 MG/ML 2 ML SDV ONE; Ondansetron 4 MG/2 ML SDV ONE; Propofol 200 MG/20 ML SDV ONE; Rocuronium 50 MG/5 ML Vial ONE; Sodium Chloride 0.9% 10 ML Syringe FLUSH PRN; Sodium Chloride 0.9% 10 ML Syringe FLUSH SCH; ceFAZolin 2 GM Vial ONE; dexmedeTOMIDine HCl 200 MCG/2 ML SDV ONE; fentaNYL 250 MCG/5 ML SDV ONE
[2024-02-08] MEDS: Lactated Ringers 1,000 ML IV SCH (09:00)
[2024-02-08] MEDS: Acetaminophen 325 MG Tab PO ONE (09:11)
[2024-02-08] MEDS ORDERED: Lactated Ringers 1,000 ML ONE ×2 (09:17→10:44)
[2024-02-08] MEDS ORDERED: Propofol 200 MG/20 ML SDV ONE ×4 (09:25→10:27)
[2024-02-08 09:34] LABS: APPEARANCE,URINE SLT CLOUDY (Clear); BILIRUBIN,URINE 1+ (Negative); COLOR,URINE DARK YELLOW (Yellow); GLUCOSE,URINE NEGATIVE (Negative); KETONES,URINE TRACE (Negative); LEUKOCYTE ESTERASE,URINE NEGATIVE (Negative); NITRITE,URINE NEGATIVE (Negative); OCCULT BLOOD,URINE TRACE-INTACT (Negative); PROTEIN,URINE NEGATIVE (Negative)
[2024-02-08 09:36] LABS: WBC,URINE 0-5 /hpf (0-5)
[2024-02-08 09:40] LABS: BACTERIA,URINE FEW /hpf (FEW); MUCUS,URINE MANY /hpf (FEW)
[2024-02-08] MEDS ORDERED: HYDROmorphone 0.5 MG/0.5 ML Syringe ONE ×2 (09:52→10:03)
[2024-02-08] MEDS: Bupivacaine 0.5% 10 ML SDV ONE (10:35)
[2024-02-08] MEDS: Bupivacaine 0.25% 10 ML SDV ONE (10:58)
[2024-02-08] MEDS: EPINEPHrine 1 MG/ML SDV ONE (10:59)
[2024-02-08] MEDS ORDERED: HYDROmorphone 0.5 MG/0.5 ML Syringe IVPUSH PRN (13:35)
[2024-02-08] MEDS ORDERED: fentaNYL 100 MCG/2 ML SDV IVPUSH PRN (13:35)
== END 2024-02-08 15:20 | disposition home or self-care (01) ==
LOC: JD.SDS 07:58
PROVIDERS: ATTEND Obstetrics & Gynecology
DX: D50.0 Iron deficiency anemia secondary to blood loss (chronic) (principal); D25.1 Intramural leiomyoma of uterus; D25.2 Subserosal leiomyoma of uterus; N92.0 Excessive and frequent menstruation with regular cycle; N94.6 Dysmenorrhea, unspecified; N83.8 Other noninflammatory disorders of ovary, fallopian tube and broad ligament; N70.11 Chronic salpingitis; N73.6 Female pelvic peritoneal adhesions (postinfective); J45.909 Unspecified asthma, uncomplicated; K21.9 Gastro-esophageal reflux disease without esophagitis; F41.9 Anxiety disorder, unspecified; E66.01 Morbid (severe) obesity due to excess calories; Z68.43 Body mass index [BMI] 50.0-59.9, adult; Z98.84 Bariatric surgery status; Z88.5 Allergy status to narcotic agent
CPT/HCPCS: 36415; 58552; 81001; 81025; 86850; 86900; 86901; A9270; J0171; J0665; J0690; J1100; J1170; J1885; J2250; J2405; J2704; J3010; J3490; J7120; 00944